=== PATIENT | female | born 1970 | race Caucasian/White ===

== ENCOUNTER 2020-01-08 08:12 | Day surgery (SDC) | payer OTHER ==
[~2020-01-08 08:12] MED LIST: Buffered Lidocaine 1% SYRIN* 1 ML/SYRINGE INTRADERM ONE; Lactated Ringers 1000 ML Bag* 1,000 ML IV SCH
[2020-01-08] MEDS ORDERED: ceFAZolin 2 GM in NS PREMIX(*) 2 GM/100 ML BAG IVPB ONE (08:40)
[2020-01-08] MEDS ORDERED: Lidocaine 2% PF * 5 ML VIAL ONE (09:24)
[2020-01-08] MEDS ORDERED: Propofol* 10 MG/ML 20 ML BTL ONE (09:24)
[2020-01-08] MEDS ORDERED: Midazolam* 1 MG/ML 2 ML VIAL (2 MG) ONE (09:24)
[2020-01-08] MEDS ORDERED: fentaNYL* 50 MCG/ML 2 ML VIAL (100 MCG VIAL) ONE (09:25)
[2020-01-08] MEDS ORDERED: Bupivacaine 0.25% SDV* 30 ML ONE (10:01)
[2020-01-08] MEDS ORDERED: Metoclopramide IV* 5 MG/ML 2 ML VIAL ONE (10:20)
[2020-01-08] MEDS ORDERED: Ondansetron INJ* 2 MG/ML VIAL ONE (10:20)
[2020-01-08] MEDS ORDERED: Ketorolac INJ* 30 MG/ML 1 ML VIAL ONE (10:20)
[2020-01-08] MEDS ORDERED: Dexamethasone IV* 4 MG/ML 1 ML (4 MG) ONE (10:20)
[2020-01-08] MEDS ORDERED: Succinylcholine* 20 MG/ML 10 ML VIAL ONE (10:22)
[2020-01-08] MEDS ORDERED: Acetaminophen TAB* 325 MG PO PRN (11:02)
[2020-01-08] MEDS ORDERED: DiMENhydriNATE IV* 50 MG/ML VIAL IV PUSH PRN (11:02)
[2020-01-08] MEDS ORDERED: Naloxone* 0.4 MG/ML 1 ML VIAL IV PRN (11:02)
[2020-01-08] MEDS ORDERED: oxyCODONE TAB* 5 MG TAB PO PRN (11:02)
[2020-01-08] MEDS ORDERED: fentaNYL* 50 MCG/ML 2 ML VIAL (100 MCG VIAL) IV PRN (11:02)
[2020-01-08 12:54] VITALS: BP 126/84
--- NOTE | 2020-01-09 01:31 | OP ---
OPERATIVE REPORT: DATE OF OPERATION: 01/08/20 - [facility] DATE OF : 66 SURGEON: Ramiro Hickman MD MATERIAL COORDINATOR: TERRI Butler An assistant plant control operator was needed for the procedure to aid in positioning of the arm and retraction. ANESTHESIOLOGIST: Dr. Chase. ANESTHESIA: General. PRE-OP DIAGNOSIS: Left small finger subacute, 3-1/2 week old volar proximal interphalangeal joint dislocation. POST-OP DIAGNOSES: 1. Left small finger subacute, 3-1/2 week old volar proximal interphalangeal joint dislocation. 2. Left small finger central slip extensor tendon avulsion. OPERATIVE PROCEDURE: 1. Open reduction of left small finger proximal interphalangeal joint dislocation with removal of interposed volar plate. 2. Dynamic external fixator placement of the left small finger proximal interphalangeal joint dislocation. 3. Extensor tendon repair of central slip left small finger at the proximal interphalangeal joint. ESTIMATED BLOOD LOSS: 2 mL. COMPLICATIONS: None. FINDINGS: See above and below. INDICATIONS: Ms. Phillips has the dislocation I saw her last Sunday and the x- ray was concerning for the PIP joint being gapped open palmarly. We tried to get a CT scan that day, we could not get hold of her. We ended up by getting the CT scan on Sunday and we brought her to the operating room in the next available OR day which is today. She understands the risk of postoperative stiffness, risk of repeat dislocation, and other potential complications and she wished to proceed. DESCRIPTION OF PROCEDURE: Ms. Phillips was seen in the preoperative holding area. The correct site, side, and procedures were identified. We came back to the operating room where the arm was prepped and draped in the usual fashion and a time- out was performed. A digital block was performed proximally with 0.25% plain Marcaine. I then made a trapezoidal incision coming across the PIP joint along the mid axial line ulnarly. Radially based flap was sewn back and was raised right off the flexor tendon sheath. I incised the A3 maciej along the ulnar aspect with a [place] blade and this was reflected radially. The flexor tendons were retracted with a Ragnell retractor while I freed up the volar plate distally and removed it. I worked on both sides of the tendon to do this. Once I had gotten the volar plate out of the way, I placed a [place] elevator into the joint and the joint reduced. After the joint was reduced, I went ahead and checked the stability when she was out in extension, it was stable. As soon as I started to flex it and and got to about 45 degrees of flexion, it would dislocate out palmarly. I decided this was unacceptable and the chance for repeat dislocation in the splint would be too much. Additionally, she had a bit of a boutonniere deformity. I went ahead and tacked the edges of my skin back where the flap was. I then brought in the mini C-arm and I placed one 9 inch 0.45 K-wire parallel to the joint line through the distal aspect of the proximal phalanx and parallel to the dorsum of the bone on the lateral view. Second K-wire was placed in the middle phalanx in similar manner, the distal aspect of the middle phalanx in similar manner and these were both placed in the center of rotation in the phalangeal head. The proximal wire was then bent at 90 degree angles and then each limb of the wire was bent in S configuration distally just a little bit beyond the distal wire so as to provide traction. I then backed the distal wire and passed it through one side of the S bent and then I advanced the other side of the wire through the S bent, this provided an excellent dynamic external fixator. I brought in my mini C-arm fluoroscopy and I checked the joint in extension, early flexion, mid flexion and then deep flexion and I had a nice congruent joint throughout all full flexion arc. There was absolutely no instability and I could not get the joint to dislocate. Once I had bent and clipped all the wires, I went ahead and so the rest of my skin flap closed with 4-0 nylon suture on the palmar aspect. I did not want to address the central slip avulsion, so I made a small transverse incision over the dorsum of the PIP joint, rupture was seen. I took a 4-0 Ethibond suture and I sewed that. There was enough of a stump on the dorsum of the middle phalanx that I was able to sew tendon repair with a couple of 4-0 FiberWire [id number] sutures. The extensor tendon repaired very nicely. The DIP joint was much more supple now. I irrigated out that wound and closed that with just a couple of simple 4-0 nylon sutures. The fixator was then dressed as were the wounds. She was taken to the recovery room in stable condition. POSTOPERATIVE PLAN: She will be instructed on pin care and gentle motion with the fixator on. I will check her back in 1 week time. [id number]/CPS #: [id number]
== END 2020-01-08 13:00 | disposition home or self-care (01) ==
LOC: OREAST 08:12
PROVIDERS: ATTEND Orthopaedic Surgery Hand Surgery
DX: S63.287A Dislocation of proximal interphalangeal joint of left little finger, initial encounter (principal); X50.0XXA Overexertion from strenuous movement or load, initial encounter; Y92.9 Unspecified place or not applicable; K21.9 Gastro-esophageal reflux disease without esophagitis; G40.89 Other seizures; R20.2 Paresthesia of skin; J44.9 Chronic obstructive pulmonary disease, unspecified; M19.90 Unspecified osteoarthritis, unspecified site; F41.8 Other specified anxiety disorders; Z87.891 Personal history of nicotine dependence; E07.9 Disorder of thyroid, unspecified
CPT/HCPCS: 76000; C1713; C1776; J0330; J0690; J1100; J1885; J2250; J2405; J2704; J2765; J3010; J3490